=== PATIENT | male | born 2000 | race Hispanic/Latino ===

== ENCOUNTER 2021-01-05 21:53 | Emergency (ER) | payer OTHER ==
[~2021-01-05] VITALS: Ht 188 cm; Wt 79.0 kg
[2021-01-06] MEDS ORDERED: NAPROXEN 250 MG TAB PO ONE (00:50)
[2021-01-06] MEDS ORDERED: LIDOCAINE 4% CREAM 5GM (LMX4) TOP ONE (00:50)
[2021-01-06] MEDS ORDERED: VOLT1GEL15 TOP (02:30)
--- NOTE | 2021-01-06 02:37 | REPVR ---
PROCEDURE INFORMATION: Exam: XR Right Knee Exam date and time: 01/06/2021 12:49 AM Age: 20 years old Clinical indication: Other: No trauma; Additional info: Swelling after running, no trauma TECHNIQUE: Imaging protocol: XR Right knee. Views: 1 or 2 views. COMPARISON: No relevant prior studies available. FINDINGS: Bones/joints: Normal. Soft tissues: Normal. IMPRESSION: No acute findings. PROCEDURE INFORMATION: Exam: XR Left Knee Exam date and time: 01/06/2021 12:49 AM Age: 20 years old Clinical indication: Other: No trauma; Additional info: Swelling after running, no trauma TECHNIQUE: Imaging protocol: XR Left knee. Views: 1 or 2 views. COMPARISON: No relevant prior studies available. FINDINGS: Bones/joints: Trace left-sided joint effusion. Soft tissues: Normal. IMPRESSION: 1. No acute findings. 2. Trace left-sided joint effusion. Electronically signed by: Agusto Spivey On 01/06/2021 02:37:02 AM
[2021-01-06 02:41] VITALS: BP 117/62
== END 2021-01-06 02:44 | disposition home or self-care (01) ==
LOC: M ED 21:53
DX: M25.561 Pain in right knee (principal); M25.562 Pain in left knee; R22.43 Localized swelling, mass and lump, lower limb, bilateral; F17.200 Nicotine dependence, unspecified, uncomplicated

== ENCOUNTER → 2021-10-14 | Outpatient (CLI) | payer OTHER ==
[~2021-10-14] MED LIST: VOLT1GEL15 TOP
== END ==
LOC: M PLARAD 14:22
PROVIDERS: ATTEND Emergency Medicine
DX: Z04.1 Encounter for examination and observation following transport accident (principal)